=== PATIENT | male | born 1980 | race Caucasian/White ===

== ENCOUNTER 2020-10-04 07:46 | Day surgery (SDC) | payer OTHER ==
[~2020-10-04] VITALS: Ht 172.7 cm; Wt 116.6 kg
[2020-10-04 08:20] VITALS: BP 143/97; PULSE 90; TEMP 98.2
[2020-10-04] MEDS ORDERED: PRINZIDE 12.5 M1 TAB PO (08:27)
[2020-10-04] MEDS ORDERED: MOBIC15 MG PO (08:28)
[2020-10-04] MEDS ORDERED: DITROPAN 5MG TAB5 MG PO (08:28)
[2020-10-04] MEDS ORDERED: PRINIVIL10 MG PO (08:30)
[2020-10-04 10:10] VITALS: BP 109/74; PULSE 86; TEMP 97
[2020-10-04 10:15] VITALS: BP 114/79; PULSE 92
[2020-10-04 10:30] VITALS: BP 128/91; PULSE 84
[2020-10-04 10:45] VITALS: BP 137/87; PULSE 72
[2020-10-04 11:00] VITALS: BP 129/83; PULSE 73
--- NOTE | 2020-10-04 14:03 | NUR ---
PT WAS BROUGHT BACK TO BAY #8 PER CART FROM THE ENDO PROCEDURE ROOM. LUNGS CLEAR AND HYPO ACTIVE ON THE RIGHT SIDE AND CLEAR AND AUDIBLE IN THE LEFT [place] AND BASES. HRR, BOWEL SOUNDS PRESENT. IVF FLOWING PATENT INTO LEFT HAND. PT DENIES NAUSEA AND PAIN. PT REQUESTING BLUEBERRY MUFFIN AND WATER AND PEPSI. WILL CONT TO MONITOR PROGRESS.
--- NOTE | 2020-10-04 14:09 | NUR ---
PT TOLERATING FOOD AND FLUIDS WITHOUT DIFFICULTY.
--- NOTE | 2020-10-04 14:12 | NUR ---
PT TOLERATING FOOD AND FLUIDS WITHOUT NAUSEA. PT DENIES PAIN. IV WAS DC'D TO RIGHT HAND, PT TOLERATED WELL. DISMISSAL INSTRUCTIONS PROVIDED, PT DENIES QUESTIONS AND DISMISSAL SIGNED. EDUCATION MATERIALS PROVIDED. PT WAS TAKEN TO PATIENT ENTRANCE. PT SON DRIVING FAMILY VEHICLE, DRIVING PATIENT HOME.
== END 2020-10-04 11:15 | disposition home or self-care (01) ==
LOC: SDCO 07:46
DX: R19.7 Diarrhea, unspecified (principal); I10 Essential (primary) hypertension; Z79.899 Other long term (current) drug therapy; Z98.52 Vasectomy status; Z80.0 Family history of malignant neoplasm of digestive organs
CPT/HCPCS: J2704; J7030